=== PATIENT | female | born 1935 | race Caucasian/White ===

== ENCOUNTER → 2017-01-16 | Day surgery (SDC) | payer MEDICARE, OTHER ==
--- NOTE | 2017-01-12 13:04 | Diagnostic Imaging Report ---
PROCEDURE: Frontal and lateral views of the chest. COMPARISON: 06/23/13 INDICATIONS: PRE OPERATIVE CHEST X-RAY FOR FOOT SURGERY FINDINGS: Lines/tubes: None. Lungs: The lungs are well inflated and clear. There is no evidence of pneumonia or pulmonary edema. Pleura: There is no pleural effusion or pneumothorax. Heart and mediastinum: The heart and the mediastinum are normal. Bones: No acute bony abnormality. IMPRESSION: 1. No acute cardiopulmonary disease. Dictated by: Marek Scott M.D. on 01/12/2017 at 13:12 Electronically approved by: Marek Scott M.D. on 01/12/2017 at 13:12
[~2017-01-16] MED LIST: BACITRACIN ZINC 15 GM OINT ONE; BENADRYL PO; BENEFIBER1 EAC1 PO; BIOTIN2500 MCG PO; BUPIVACAINE HCL 0.5% INJ 30 ML VIAL INJ ONE; CEFAZOLIN SOD 2 GM/D5W 50ML 50 ML IV ONE; CINNAMON500 MG PO; CLARITIN10 M2 PO; DEXAMETHASONE SOD PHOS INJ 4 MG/ML VIAL ONE; EYE DROPS OP; FENTANYL CITRATE/PF 100MCG/2 ML INJ ONE; GENTLE TEARS OP; HYDROCODON-ACE1 EA11 PO; IMODIUM2 MG PO; LIDOCAINE HCL 2% LOCAL INJ 5 ML SDV VIAL INJ ONE; MIDAZOLAM HCL 2 MG/2 ML VIAL ONE; NEXIUM40 MG PO; OMEGA 3 1,0001 EACH PO; ONDANSETRON HCL INJ 2 MG/ML VIAL ONE; PREDNISONE5 MG PO; PROPOFOL IV EMULSION 10 MG/ML 20 ML VIAL ONE; SEVOFLURANE INHAL SOLN 250 ML PEN BTL ONE; TOBRADEX EYE O3.5 GM; ULTRAM50 MG PO; VITAMIN D35000 UNIT PO
--- NOTE | 2017-03-27 13:13 | Operative Report ---
DATE OF PROCEDURE: January 16, 2017 PREOPERATIVE DIAGNOSES 1. 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 2. Pain in the right foot. POSTOPERATIVE DIAGNOSES 1. 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 2. Pain in the right foot. PROCEDURE: Interphalangeal joint fusion, right foot. PATHOLOGY: None. ANESTHESIA: General anesthetic. HEMOSTASIS: Pneumatic ankle tourniquet. ESTIMATED BLOOD LOSS: Less than 10 mL. MATERIALS: Two Gidsy erica for fixation of the arthrodesis. Human allograft to promote arthrodesis at the IP joint. COMPLICATIONS: None. CONDITION: Stable. PROCEDURE IN DETAIL: Under mild sedation, the patient was brought to the operating room and placed on the operating table in the supine position. Following IV sedation, anesthesia was obtained with a general anesthetic. At this point, the foot was scrubbed, prepped and draped in the usual aseptic manner. It was then lowered to the table. A pneumatic ankle tourniquet was inflated to 250 mmHg. The leg was lowered to the table. Attention was then directed to the dorsal aspect of the right foot, where a linear incision was made overlying the IPJ. The incision was deepened via sharp and blunt dissection down to the level of the capsule. A capsulotomy was then performed. The tendon was then transected. The IPJ was then visualized. At this point, there was noted to be osteophyte. It was dislocated dorsally. The joint was then prepared for arthrodesis. The joint was cleaned down to clean, viable bone. Utilizing 2 erica from Gidsy, 8 mm, the area was fixated. There was noted to be adequate compression clinically and with the use of intraop fluoroscopy. The area was then flushed with copious amounts of normal sterile saline solution. The use of human tissue allograft was then entered into the area in order to promote arthrodesis and to prevent scar tissue. The areas were then closed, closing the deepest layer with 4-0 Vicryl and 4-0 nylon. A clean dressing was applied consisting of Adaptic, 4 x 4's, Kerlix and Webril. A posterior splint was applied and was secured utilizing an Lino bandage. The tourniquet was deflated, and there was noted to be hyperemic response to all the digits. The patient tolerated the procedure and the anesthesia well without complications. The patient was transported to the recovery room with vital signs stable, and vascular status intact to both feet. The patient will be discharged home when she meets criteria. She was given instructions to remain nonweightbearing, to ice and elevate the foot while at rest. Follow up with me in the office and to call the office if any questions, concerns or any problems arise. Job#: [id number]
== END | disposition home or self-care (01) ==
LOC: OR 10:31
PROVIDERS: ATTEND Podiatrist Foot & Ankle Surgery
DX: M19.071 Primary osteoarthritis, right ankle and foot (principal); S99.921A Unspecified injury of right foot, initial encounter; M06.9 Rheumatoid arthritis, unspecified; R53.1 Weakness; K21.9 Gastro-esophageal reflux disease without esophagitis; K58.9 Irritable bowel syndrome, unspecified; K44.9 Diaphragmatic hernia without obstruction or gangrene; F32.9 Major depressive disorder, single episode, unspecified; J45.909 Unspecified asthma, uncomplicated; W22.8XXA Striking against or struck by other objects, initial encounter; Z01.810 Encounter for preprocedural cardiovascular examination; Z01.818 Encounter for other preprocedural examination; Z87.891 Personal history of nicotine dependence
CPT/HCPCS: 28755; 71020; 76000; 93005; C1713; C1762; J1100; J2001; J2250; J2405

== ENCOUNTER 2017-05-25 14:29 | Emergency (ER) | payer MEDICARE ==
[~2017-05-25] VITALS: Ht 152.4 cm; Wt 61.2 kg
[~2017-05-25 14:29] MED LIST changes: -BACITRACIN ZINC 15 GM OINT ONE; -BUPIVACAINE HCL 0.5% INJ 30 ML VIAL INJ ONE; -CEFAZOLIN SOD 2 GM/D5W 50ML 50 ML IV ONE; -DEXAMETHASONE SOD PHOS INJ 4 MG/ML VIAL ONE; -FENTANYL CITRATE/PF 100MCG/2 ML INJ ONE; -LIDOCAINE HCL 2% LOCAL INJ 5 ML SDV VIAL INJ ONE; -MIDAZOLAM HCL 2 MG/2 ML VIAL ONE; -ONDANSETRON HCL INJ 2 MG/ML VIAL ONE; -PROPOFOL IV EMULSION 10 MG/ML 20 ML VIAL ONE; -SEVOFLURANE INHAL SOLN 250 ML PEN BTL ONE
[2017-05-25] MEDS ORDERED: HYDROCODONE/APAP 5MG-325MG TAB PO ONE (15:00)
[2017-05-25] MEDS ORDERED: CLONIDINE HCL 0.1 MG TAB PO ONE (15:15)
--- NOTE | 2017-05-25 16:04 | Diagnostic Imaging Report ---
PROCEDURE:X-RAY UNILATERAL RIBS WITH CHEST X-RAY COMPARISON:None. INDICATIONS:FALL, RIGHT SIDED RIB PAIN FINDINGS: BONES:Decreased mineralization. No acute displaced fracture or dislocation. Joint spaces are within normal limits. SOFT TISSUES:Negative. OTHER:Lungs are clear. Cardiac mediastinal silhouette is unremarkable. Tortuous aorta. CONCLUSION: No acute displaced fracture or dislocation. Juanjo Retana M.D. Dictated by: Juanjo Retana M.D. on 05/25/2017 at 16:05 Electronically approved by: Juanjo Retana M.D. on 05/25/2017 at 16:05
[2017-05-25 16:26] VITALS: BP 204/102
== END 2017-05-25 17:03 | disposition home or self-care (01) ==
LOC: ER 14:29
DX: S20.211A Contusion of right front wall of thorax, initial encounter (principal); S30.1XXA Contusion of abdominal wall, initial encounter; W18.2XXA Fall in (into) shower or empty bathtub, initial encounter; Y93.E1 Activity, personal bathing and showering; Y92.002 Bathroom of unspecified non-institutional (private) residence as the place of occurrence of the external cause
CPT/HCPCS: 71101; 99283

== ENCOUNTER 2019-07-02 13:16 | Outpatient (RCR) | payer MEDICARE | END 2019-07-06 | LOC: OT 13:16 | PROVIDERS: ATTEND Specialist | DX: M75.41 Impingement syndrome of right shoulder (principal) ==

== ENCOUNTER 2020-02-09 18:44 | Emergency (ER) | payer MEDICARE ==
[~2020-02-09] VITALS: Ht 152.4 cm; Wt 61.2 kg
[2020-02-09] MEDS ORDERED: ASPIRIN 81 MG CHEW TAB PO ONE (19:00)
[2020-02-09 19:24] LABS: BASOPHILS # (AUTO) 0.1 (0.0-0.1); BASOPHILS % 0.6 % (0.0-1.0); EOSINOPHILS # (AUTO) 0.2 (0.0-0.4); EOSINOPHILS % 2.9 % (0.0-6.0); HEMATOCRIT 36.3 % (34.2-44.1); HEMOGLOBIN 11.8 g/dL (12.0-16.0); LYMPHOCYTES # (AUTO) 1.4 (1.0-3.2); LYMPHOCYTES % 17.4 % (18.0-39.1); MEAN CORPUSCULAR HEMOGLOBIN 29.1 pg (28-32); MEAN CORPUSCULAR HGB CONC 32.5 g/dL (31-35); MEAN CORPUSCULAR VOLUME 89.4 fL (81-99); MONOCYTES % 12.5 % (4.4-11.3); NEUTROPHILS # (AUTO) 5.3 (2.1-6.9); NEUTROPHILS % 66.1 % (38.7-80.0); PLATELET COUNT 232 x10e3/uL (140-360); RED BLOOD COUNT 4.06 x10e6/uL (3.6-5.1); RED CELL DISTRIBUTION WIDTH 13.5 % (11.7-14.4)
[2020-02-09 19:42] LABS: ALBUMIN 3.6 g/dL (3.5-5.0); ALBUMIN/GLOBULIN RATIO 1.3 (0.8-2.0); ANION GAP 13.2 mmol/L (8-16); CALCIUM 9.1 mg/dL (8.4-10.2); CREATININE, SERUM 0.96 mg/dL (0.57-1.11); POTASSIUM 4.2 mmol/L (3.5-5.1)
[2020-02-09 19:48] LABS: CREATINE KINASE MB 1.3 ng/mL (0-5.0)
[2020-02-09] MEDS ORDERED: DONNATAL/LIDOCAINE/MAALOX 30 ML SUSP PO STA (20:50)
[2020-02-09] MEDS ORDERED: MAGNESIUM/ALUMINUM/SIMETHICONE 30 ML UDC ONE (21:00)
[2020-02-09] MEDS ORDERED: LIDOCAINE VISC 2% SOLN 15 ML UDC ONE (21:00)
[2020-02-09] MEDS ORDERED: BELLADONNA ALK/PHENOBARBITAL 5 ML UDC ONE (21:00)
[2020-02-09] MEDS ORDERED: LIDOCAINE VISC 2% SOLN 15 ML UDC PO ONE (21:30)
[2020-02-09] MEDS ORDERED: MAGNESIUM/ALUMINUM/SIMETHICONE 30 ML UDC PO ONE (21:30)
[2020-02-09] MEDS ORDERED: BELLADONNA ALK/PHENOBARBITAL 5 ML UDC PO ONE (21:30)
[2020-02-09 21:45] LABS: CREATINE KINASE MB 1.2 ng/mL (0-5.0)
== END 2020-02-09 22:35 | disposition home or self-care (01) ==
LOC: ER 18:58
DX: R10.13 Epigastric pain (principal); R07.9 Chest pain, unspecified; I10 Essential (primary) hypertension; K21.9 Gastro-esophageal reflux disease without esophagitis; M32.9 Systemic lupus erythematosus, unspecified; G30.9 Alzheimer's disease, unspecified; F02.80 Dementia in other diseases classified elsewhere, unspecified severity, without behavioral disturbance, psychotic disturbance, mood disturbance, and anxiety
CPT/HCPCS: 36415; 71045; 80053; 82550; 82553; 83880; 84484; 85025; 93005; 99283

== ENCOUNTER 2020-03-07 16:49 | Emergency (ER) | payer MEDICARE ==
[~2020-03-07] VITALS: Ht 152.4 cm; Wt 61.2 kg
[2020-03-07 17:34] LABS: BASOPHILS % 0.4 % (0.0-1.0); EOSINOPHILS % 0.4 % (0.0-6.0); HEMATOCRIT 35.4 % (34.2-44.1); HEMOGLOBIN 11.6 g/dL (12.0-16.0); LYMPHOCYTES # (AUTO) 1.3 (1.0-3.2); LYMPHOCYTES % 25.9 % (18.0-39.1); MEAN CORPUSCULAR HEMOGLOBIN 29.1 pg (28-32); MEAN CORPUSCULAR HGB CONC 32.8 g/dL (31-35); MEAN CORPUSCULAR VOLUME 88.7 fL (81-99); MONOCYTES # (AUTO) 0.8 (0.2-0.8); MONOCYTES % 15.1 % (4.4-11.3); NEUTROPHILS # (AUTO) 2.9 (2.1-6.9); NEUTROPHILS % 57.6 % (38.7-80.0); PLATELET COUNT 142 x10e3/uL (140-360); RED BLOOD COUNT 3.99 x10e6/uL (3.6-5.1); RED CELL DISTRIBUTION WIDTH 13.7 % (11.7-14.4)
[2020-03-07] MEDS ORDERED: ACETAMINOPHEN 325 MG TAB PO ONE (17:45)
[2020-03-07] MEDS ORDERED: CEFTRIAXONE SOD 1 GM/NS 50 ML 50 ML IV ONE (17:45)
[2020-03-07] MEDS ORDERED: SODIUM CHLORIDE 0.9% 1000ML 1,000 ML IV SCH (17:45)
[2020-03-07 17:46] LABS: ALBUMIN 3.7 g/dL (3.5-5.0); ALBUMIN/GLOBULIN RATIO 1.3 (0.8-2.0); ANION GAP 14.1 mmol/L (8-16); CALCIUM 8.3 mg/dL (8.4-10.2); CREATININE, SERUM 1.04 mg/dL (0.57-1.11); POTASSIUM 4.1 mmol/L (3.5-5.1)
[2020-03-07 18:32] LABS: CLARITY,URINE CLEAR (CLEAR); COLOR,URINE YELLOW (YELLOW)
[2020-03-07 18:33] LABS: KETONES,URINE NEGATIVE (NEGATIVE); LEUKOCYTE ESTERASE ,URINE TRACE (NEGATIVE); NITRITE,URINE NEGATIVE (NEGATIVE); PROTEIN,URINE DIPSTICK 2+ (NEGATIVE); URINE UROBILINOGEN 0.2 mg/dL (0.2 - 1)
[2020-03-07 18:42] LABS: WBC,URINE (MAN) 0-5 /HPF (0-5)
[2020-03-07 18:43] LABS: EPITHELIAL CELLS,URINE FEW /LPF; RBC,URINE 0-5 /HPF (0-5); TRANSITIONAL EPI CELLS,URINE FEW
== END 2020-03-07 19:39 | disposition home or self-care (01) ==
LOC: ER 17:26
DX: U07.1 COVID-19 (principal); R50.9 Fever, unspecified; R05 Cough
CPT/HCPCS: 36415; 71045; 80053; 81001; 83605; 85025; 87040; 87086; 99283; J0696; J7030; U0002